=== PATIENT | male | born 1990 | race Caucasian/White ===

== ENCOUNTER 2023-07-02 19:57 | Emergency (ER) | payer OTHER, SELFPAY ==
[2023-07-02 19:59] VITALS: BP 166/110
[2023-07-02 20:48] VITALS: BP 153/97
[2023-07-02 20:50] VITALS: BMI 33.0
[2023-07-02 21:00] VITALS: BP 159/115
--- NOTE | 2023-07-02 21:09 | ED.GENMED ---
History of Present Illness
General
Chief Complaint: Abdominal Pain
Time Seen by Provider: 07/02/23 20:56
Travel History
Have you had any contact with someone who has COVID-19?: No
Do you have any symptoms of coronavirus? Fever > 100 degrees, chills, cough, shortness of breath, sore throat, loss of taste or smell, muscle aches, or headache?: No
History of Present Illness
History of Present Illness:
33-year-old male with history of insulin-dependent type 1 diabetes, GERD, and cluster headaches presents to the emergency department for evaluation of epigastric pain over the past 1 to 2 days. He is chronically on Prilosec and has taken Reglan
without significant relief. States it feels somewhat comparable to past bout of pancreatitis which he states was idiopathic and not due to alcohol or biliary disease. Denies any fevers or chills. Denies any alcohol intake. Denies any recent
NSAID use
Past History
Past History
ED Past Medical History: IDDM and Other (Depression)
ED Past Surgical History: Negative Appendectomy, Bowel resection, Cardiac or Cholecystectomy
Social History
Tobacco: Smoker
Alcohol: None
Drug: None
Personal:
Living: with family
Employment: Employed
Family History
Family History: Diabetes
Review of Systems
Review of Systems
Allergies reviewed?: Yes
All Other Systems: ROS reviewed and negative except as documented in HPI and ROS
Phy Exam
Physical Exam
Physical Exam:
GEN: Well appearing, NAD, WDWN
HEENT: Oral mucosa moist, no scleral icterus
Cardiac: Regular rate and rhythm, no murmurs
Lung: No respiratory distress, no tachypnea
Abdomen: Soft, generally nontender to all 4 quadrants, no rigidity
MSK: No gross deformity or injuries
Skin: Good color, no pallor or jaundice, no rashes
Neuro: AO x3, moves all extremities freely
Psych: Calm, cooperative
Course
Orders/Labs/Results
Orders:
Orders
07/02/23 20:56
EKG [Electrocardiogram (*1)] Urgent
Reason for Study: Abdominal Pain
07/02/23 21:08
Complete Blood Count/With Diff Urgent
Comprehensive Metabolic Panel Urgent
Lipase Urgent
07/02/23 21:09
Metoclopramide [Reglan] 10 mg IV NOW STA
Sucralfate Suspension [Carafate Suspension] 1 gm PO NOW STA
Abnormal Lab Results
07/02/23
21:08
RBC 4.31 L 10^6/uL
(4.70-6.10)
Hct 36.8 L %
(39.0-52.0)
Absolute Monos (auto) 0.8 H 10^3/uL
(0.1-0.6)
Monocytes % 10.7 H %
(1.7-9.3)
Glucose 147 H mg/dl
(70-99)
Lipase 301 H U/L
(23-300)
07/02/23 21:08
07/02/23 21:08
Vital Signs
Initial and Last Documented VS:
Initial Vital Signs
Temp Pulse Resp BP Pulse Ox
98.7 F 83 20 166/110 98
07/02/23 19:59 07/02/23 19:59 07/02/23 19:59 07/02/23 19:59 07/02/23 19:59
Last Documented Vital Signs
Temp Pulse Resp BP Pulse Ox
98.7 F 83 20 130/90 98
07/02/23 19:59 07/02/23 19:59 07/02/23 19:59 07/02/23 22:00 07/02/23 20:59
MDM/Problems Addressed
MDM/Problems Addressed:
Patient's labs are reassuring, no evidence for pancreatitis. Exam is benign, no indication for imaging. Likely gastritis/GERD flareup, will increase his daily PPIs and at H2 blockers and Carafate. Recommend outpatient follow-up with his
master sheet clerk
*Critical Care Note
Total Time (30-74mins, 75-104mins- exclusive of procedures): Not Applicable
ED Attending Note
-
Portions of this chart may have been created with voice recognition software.� Occasional wrong word or��sound alike� substitutions may have occurred due to the inherent limitations of voice recognition software.
Discharge Plan
Departure
Patient Disposition: Home (Routine Discharge)
Date of Disposition: 07/02/23
Time of Disposition: 22:31
Patient with high blood pressure during this ER visit?: No
Discharge Problem:
Gastritis
Instructions: Gastritis (DC)
Prescriptions:
New
famotidine 20 mg tablet
20 mg PO BID 7 Days Qty: 14 0RF
sucralfate [Carafate] 1 gram tablet
1 g PO ACHS Qty: 90 0RF
Rx Instructions:
Dissolve in 10mL water prior to consumption
No Action
zinc gluconate 50 mg Tablet
50 mg PO DAILY
zolpidem 12.5 mg Tablet,Ext Release Multiphase
12.5 mg PO HS
cholecalciferol (vitamin D3) 50 mcg (2,000 unit) Tablet
50 mcg PO DAILY
Cbd Gummy
25 mg PO HS
Cinnamon Supplement
2 cap PO DAILY
Patient Comments:
Pt started 09/02/22. This contains cinnamon 500mg, Vit D 500IU, Chromium 400mcg.
clonidine HCl 0.2 mg Tablet
0.2 mg PO HS
omeprazole 20 mg Tablet,Delayed Release (Dr/Ec)
20 mg PO DAILY
desvenlafaxine succinate [Pristiq] 25 mg Tablet Extended Release 24 Hr
75 mg PO DAILY
Insulin Pump - Humalog
0 unit SC DIRECTED
Patient Comments:
1.5 units/per hour basal rate
acetaminophen [acetaminophen] 325 mg tablet
650 mg PO Q6HPRN PRN (Reason: mild pain) Qty: 14 0RF
tramadol 50 mg tablet
25 mg PO Q6HPRN PRN (Reason: severe pain/breakthrough pain) Qty: 8 0RF
ibuprofen 600 mg tablet
600 mg PO Q6H PRN (Reason: pain) Qty: 14 0RF
Referrals:
David Barragan, DO [Family Provider] -
Activity Restrictions/Additional Instructions:
Double your omeprazole dosing
Follow up with your master sheet clerk
Interventions
Interventions:
*Risk Screen - Suicide Last Done: 07/02/23 19:59
*General Assessment Last Done: 07/02/23 19:59
*Neglect/Abuse Screening Last Done: 07/02/23 19:59
ED- Fall Risk Assessment Last Done: 07/02/23 20:50
*ED COVID-19 Vaccine History Last Done: 07/02/23 20:50
*Nursing Disposition Last Done: 07/02/23 22:39
VG-[id number]-Ntfncyjnui Assessment Last Done: 07/02/23 20:50
Discharge Date and Time
Discharge Date/Time: 07/02/23 22:40
[2023-07-02 21:14] LABS: % Basophils 0.8 % (0-2); % Eosinophils 3.5 % (0-6); % Immature Granulocytes 0.3 % (0-0.5); % Lymphocytes 26.2 % (20.5-51.1); % Monocytes 10.7 % (1.7-9.3); % Neutrophils 58.5 % (42.2-75.2); Absolute Basophils 0.1 10^3/uL (0-0.2); Absolute Eosinophils 0.3 10^3/uL (0-0.7); Absolute Lymphocytes 1.9 10^3/uL (1.2-3.4); Absolute Monocytes 0.8 10^3/uL (0.1-0.6); Absolute Neutrophils 4.3 10^3/uL (1.4-6.5); Hematocrit 36.8 % (39.0-52.0); Hemoglobin 13.2 g/dL (13.0-18.0); Mean Corp Hgb Conc. 35.9 g/dL (33.0-37.0); Mean Corpuscular Hgb 30.6 pg (27.0-31.0); Mean Corpuscular Volume 85.4 fL (80.0-94.0); Mean Platelet Volume 10.1 fL (7.4-10.4); Nucleated Red Blood Cells % 0 % (-); Platelet Count 239 10^3/uL (130-400); Red Blood Cell Count 4.31 10^6/uL (4.70-6.10); Red Cell Dist. Width 13.4 % (11.5-14.5); White Blood Cell Count 7.4 10^3/uL (4.8-10.8)
[2023-07-02] MEDS: CARAFATE SUSPENSION 1 GM PO (21:19)
[2023-07-02] MEDS: REGLAN 10 MG IV (21:20)
[2023-07-02 21:34] LABS: ALT (SGPT) 30 U/L (0-50); AST (SGOT) 30 U/L (17-59); Albumin 4.6 g/dl (3.5-5.0); Alkaline Phosphatase 66 U/L (38-126); Blood Urea Nitrogen 16 mg/dl (9-20); Calcium 9.7 mg/dl (8.4-10.2); Carbon Dioxide 29 mmol/L (22-30); Chloride 101 mmol/L (98-107); Estimated Creatinine Clearance > 125 ml/min; Glucose 147 mg/dl (70-99); Lipase 301 U/L (23-300); Potassium 4.1 mmol/L (3.5-5.1); Sodium 135 mmol/L (135-145); Total Bilirubin 0.5 mg/dl (0.2-1.3); Total Protein 7.7 g/dl (6.3-8.2); eGFR > 60.00
[2023-07-02 22:00] VITALS: BP 130/90
== END 2023-07-02 22:40 | disposition home or self-care (01) ==
LOC: EMR 19:57
PROVIDERS: EMERGENCY PHYSICIAN Emergency Medicine; FAMILY PHYSICIAN Internal Medicine
DX: K29.70 Gastritis, unspecified, without bleeding (principal); K21.9 Gastro-esophageal reflux disease without esophagitis; F17.200 Nicotine dependence, unspecified, uncomplicated; Z83.3 Family history of diabetes mellitus; Z90.49 Acquired absence of other specified parts of digestive tract
CPT/HCPCS: 99283; 96374; 80053; 83690; 85025